=== PATIENT | male | born 1940 | race Two or more races ===

== ENCOUNTER 2017-08-17 12:33 | Day surgery (SDC) | payer OTHER ==
[2017-08-16 14:15] VITALS: BMI 32.5
[2017-08-17 13:09] VITALS: TEMP 97.3
[2017-08-17] MEDS ORDERED: BUPIVACAINE HCL/PF 0.5% (5MG/ML) 10 ML VIAL ONE (13:36)
[2017-08-17 18:36] VITALS: PULSE 78
[2017-08-17 19:20] VITALS: BP 125/61
== END 2017-08-17 19:20 | disposition home or self-care (01) ==
LOC: JRADIR 12:33
PROVIDERS: ATTEND Family Medicine
PROC: 3E0R3BZ Introduction of Anesthetic Agent into Spinal Canal, Percutaneous Approach (ICD-10-PCS; principal; 2017-08-17)
PROC: 3E0R33Z Introduction of Anti-inflammatory into Spinal Canal, Percutaneous Approach (ICD-10-PCS; 2017-08-17)
PROC: B01BZZZ Fluoroscopy of Spinal Cord (ICD-10-PCS; 2017-08-17)
DX: M48.061 Spinal stenosis, lumbar region without neurogenic claudication (principal); M46.86 Other specified inflammatory spondylopathies, lumbar region
CPT/HCPCS: 62322; 77003-TC

== ENCOUNTER 2017-12-26 11:44 | Emergency (ER) | payer OTHER ==
[2017-12-26 11:52] VITALS: BP 100/73; PULSE 88; TEMP 98; BMI 32.1
[2017-12-26] MEDS ORDERED: LIDOCAINE HCL 2% JELLY 10 ML CARTRIDGE ONE (12:20)
--- NOTE | 2017-12-26 12:23 | PDOC ---
Attending Attestation - Resident Resident Name: TylerajCelso - ED Attending Attestation I have performed the following: I have examined & evaluated the patient, The case was reviewed & discussed with the resident, I agree w/resident's findings & plan, Exceptions are as noted - HPI HPI: 12/26/17 13:16 The patient is a 77 year old male with no a significant PMH of hyperlipidemia, hypertension, diverticulosis, bilateral knee hip replacement, and cholecystectomy who presents to the emergency department with urinary retention since earlier today. The patient reports that he has been experiencing suprapubic pain with only a few drops of UOP. The patient reports that he has had a similar episode once before, one year ago corrected by sutton. The patient denies any other symptoms. He denies chest pain, shortness of breath, headache and dizziness. He denies fever, chills, nausea, vomit, diarrhea,constipation or other urinary symptoms. The patient denies any other complaints. Allergies: NKA Past surgical history:bilateral knee, hip replacement. Urologist: Dr. Chicas - Physicial Exam PE: 12/26/17 13:16 GENERAL: Awake, alert, and fully oriented, in no acute distress HEAD: No signs of trauma EYES: PERRLA, EOMI, sclera anicteric, conjunctiva clear ENT: Auricles normal inspection, hearing grossly normal, nares patent, oropharynx clear without exudates. Moist mucosa NECK: Normal ROM, supple, no lymphadenopathy, JVD, or masses LUNGS: Breath sounds equal, clear to auscultation bilaterally. No wheezes, and no crackles HEART: Regular rate and rhythm, normal S1 and S2, no murmurs, rubs or gallops ABDOMEN: Soft, nontender, normoactive bowel sounds. No guarding, no rebound. No masses. +lower abd distension EXTREMITIES: Normal range of motion, no edema. No clubbing or cyanosis. No cords, erythema, or tenderness NEUROLOGICAL: Normal speech, cranial nerves intact, negative pronator drift, 5/ 5 strength in all 4 extremities, normal sensation to light touch in all 4 extremities, normal cerebellar exam, normal gait, normal reflexes and tone SKIN: Warm, Dry, normal turgor, no rashes or lesions noted. - Medical Decision Making 12/26/17 13:17 77-year-old male multiple medical problems presents to the emergency Department with urinary retention. Sutton has been placed with clear urine output. Urine is still draining at this time. Thus far, labs are negative with normal creatinine. Urinalysis is negative for infection. Case discussed with his urologist Dr. Blackburn who will see him tomorrow in the office. Will observe the patient to ensure he does not have post obstructive diuresis and if not, we' ll discharge. 12/26/17 13:46 300cc UOP, leg bag placed. Pt to f/u with Dr. Maria tomorrow. Pt feels well. I discussed the physical exam findings, ancillary test results and final diagnoses with the patient. I answered all of the patient's questions. The patient was satisfied with the care received and felt comfortable with the discharge plan and treatment plan. The patient will call their primary care physician within 24 hours to arrange follow-up and will return to the Emergency Department with any new, persistent or worsening symptoms.
[2017-12-26 12:37] LABS: HEMATOCRIT 44.7 % (35.4-49); HEMOGLOBIN 15.2 GM/dL (11.7-16.9); MCH 30.7 pg (25.7-33.7); MCHC 33.9 g/dl (32.0-35.9); MEAN CELL VOLUME 90.5 fl (80-96); MEAN PLT VOLUME 7.6 fl (7.5-11.1); PLATELET COUNT 362 K/MM3 (134-434); RBC 4.94 M/mm3 (4.00-5.60); RDW 12.6 % (11.9-15.9); WHITE BLOOD COUNT 8.3 K/mm3 (4.0-10.0)
[2017-12-26 12:51] LABS: URINE APPEARANCE CLEAR; URINE BILIRUBIN NEGATIVE (<2.0 mg/dL); URINE COLOR LTYELLOW; URINE GLUCOSE (UA) NEGATIVE (NEGATIVE); URINE KETONE NEGATIVE (NEGATIVE); URINE LEUK ESTERASE NEGATIVE (NEGATIVE); URINE NITRITE NEGATIVE (NEGATIVE); URINE PROTEIN NEGATIVE (NEGATIVE); URINE UROBILINOGEN NEGATIVE mg/dL (0.2-1.0)
[2017-12-26 13:04] LABS: ALBUMIN 3.9 g/dl (3.4-5.0); ANION GAP 6 (8-16); BILIRUBIN,TOTAL 0.5 mg/dL (0.2-1.0); BLOOD UREA NITROGEN 10 mg/dL (7-18); CALCIUM 9.1 mg/dL (8.5-10.1); CHLORIDE 103 mmol/L (98-107); CO2 27 mmol/L (21-32); CREATININE 0.9 mg/dL (0.7-1.3); GLUCOSE,RANDOM 108 mg/dL (74-106); POTASSIUM 4.6 mmol/L (3.5-5.1); SGOT/AST 14 U/L (15-37); SGPT/ALT 22 U/L (12-78); SODIUM 136 mmol/L (136-145); TOT PROT 7.1 g/dl (6.4-8.2)
[2017-12-26 13:05] LABS: ALK PHOS 66 U/L (45-117)
--- NOTE | 2017-12-26 13:12 | PDOC ---
History of Present Illness - General Chief Complaint: Urinary Problem Stated Complaint: URINARY PAIN Time Seen by Provider: 12/26/17 12:05 History Source: Patient Exam Limitations: No Limitations - History of Present Illness Initial Comments: 12/26/17 13:10 Patient is a 77M with history of enlarged prostate, HTN, HLD, diverticulitis, cholecystitis, hip replacement here today complaining of urinary retention that started at 2am today. Denies fevers, chills, nausea, vomiting. Denies pain with urination, denies blood in urine. Patient denies abdominal and flank pain. Denies chest pain and shortness of breath. Patient states that he's had history of retention in the past. Urologist: Dr Chicas Past History - Past Medical History Allergies/Adverse Reactions: Allergies Allergy/AdvReac Type Severity Reaction Status Date / Time No Known Allergies Allergy Verified 12/26/17 11:50 Home Medications: Ambulatory Orders Amlodipine Besylate/Benazepril [Lotrel 10-40 mg Capsule] 1 each PO DAILY #0 capsule 09/04/13 Aspirin Coated [Ecotrin -] 81 mg PO DAILY #0 tablet.ec 09/04/13 Atorvastatin Ca [Lipitor] 10 mg PO DAILY #0 tablet 09/04/13 Docusate Sodium [Colace -] 100 mg PO BID #0 capsule 09/04/13 Furosemide [Lasix -] 20 mg PO DAILY #0 tablet 09/04/13 Potassium Chloride [Klor-Con 10] 10 meq PO DAILY #0 tablet.er 09/04/13 Tamsulosin HCl [Flomax -] 0.4 mg PO DAILY #0 cap.er.24h 09/04/13 Carvedilol 12.5 mg PO DAILY 08/16/17 Fenofibric Acid [Fibricor] 105 mg PO DAILY 08/16/17 [place]-3/Dha/Epa/Fish Oil [[place] 3 500 Softgel] 1 each PO DAILY 08/16/17 Cardiac Disorders: Yes (STOMACH) COPD: No CHF: Yes GI Disorders: Yes (DIVERTICULOSIS) Disorders: No HTN: Yes Hypercholesterolemia: Yes Liver Disease: No Thyroid Disease: No - Surgical History Cholecystectomy: Yes Orthopedic Surgery: Yes (HIP REPLACEMENT RIGHT ,NIKKI KNEE SURGERY) - Immunization History Immunization Up to Date: Yes - Suicide/Smoking/Psychosocial Hx Smoking Status: No Smoking History: Never smoked Have you smoked in the past 12 months: No Number of Cigarettes Smoked Daily: 0 Hx Alcohol Use: No Drug/Substance Use Hx: No Substance Use Type: None Hx Substance Use Treatment: No Review of Systems - Review of Systems Comments:: 12/26/17 13:14 GENERAL/CONSTITUTIONAL: No fever or chills. No weakness. HEAD, EYES, EARS, NOSE AND THROAT: No change in vision. No sore throat. CARDIOVASCULAR: No chest pain or shortness of breath RESPIRATORY: No cough, wheezing, or hemoptysis. GASTROINTESTINAL: No nausea, vomiting, diarrhea or constipation. GENITOURINARY: No dysuria, frequency. Positive for urinary retnetion. MUSCULOSKELETAL: No joint or muscle swelling or pain. No neck or back pain. SKIN: No rash NEUROLOGIC: No headache, vertigo, loss of consciousness, or change in strength/ sensation. HEMATOLOGIC/LYMPHATIC: No anemia, easy bleeding, or history of blood clots. ALLERGIC/IMMUNOLOGIC: No hives or skin allergy. *Physical Exam - Vital Signs Last Vital Signs Temp Pulse Resp BP Pulse Ox 98.0 F 88 20 100/73 96 12/26/17 11:50 12/26/17 11:50 12/26/17 11:50 12/26/17 11:50 12/26/17 11:50 - Physical Exam Comments: 12/26/17 13:15 GENERAL: Awake, alert, and fully oriented, in no acute distress HEAD: No signs of trauma, normocephalic, atraumatic EYES: PERRLA, EOMI, sclera anicteric, conjunctiva clear NECK: Normal ROM, supple, no lymphadenopathy, JVD, or masses LUNGS: No distress, speaks full sentences, clear to auscultation bilaterally HEART: Regular rate and rhythm, normal S1 and S2, no murmurs, rubs or gallops, peripheral pulses normal and equal bilaterally. ABDOMEN: Soft, nontender, normoactive bowel sounds. No guarding, no rebound. No masses EXTREMITIES: Normal inspection, Normal range of motion, no edema. No clubbing or cyanosis. NEUROLOGICAL: Cranial nerves II through XII grossly intact. Normal speech, normal gait, no focal sensorimotor deficits SKIN: Warm, Dry, normal turgor, no rashes or lesions noted. ED Treatment Course - LABORATORY CBC & Chemistry Diagram: 12/26/17 12:25 12/26/17 12:25 - ADDITIONAL ORDERS Additional order review: Laboratory Results 12/26/17 12:23 Urine Color Ltyellow Urine Appearance Clear Urine pH 7.0 Ur Specific Glidden 1.009 Urine Protein Negative Urine Glucose (UA) Negative Urine Ketones Negative Urine Blood Negative Urine Nitrite Negative Urine Bilirubin Negative Urine Urobilinogen Negative Ur Leukocyte Esterase Negative 12/26/17 12:25 RBC 4.94 MCV 90.5 MCHC 33.9 RDW 12.6 MPV 7.6 Medical Decision Making - Medical Decision Making 12/26/17 13:15 Patient is 77M with history of HTN, HLD, diverticulitis, cholecystitis, hip replacement here today with urinary retention. Vital signs stable and normal. Sutton placed, 350cc drained after [address] Blackburn contacted , will see patient Tuesday. UA negative. CBC normal. 12/26/17 13:31 CMP shows normal. Cr, will discharge patient with return precautions. *DC/Admit/Observation/Transfer Diagnosis at time of Disposition: Urinary retention - Discharge Dispostion Disposition: HOME Condition at time of disposition: Good Decision to Admit order: No - Referrals Referrals: Rosemarie Alatorre MD [Primary Care Provider] - Walker Chicas MD [Staff Physician] - - Patient Instructions Printed Discharge Instructions: DI for Urinary Retention in Men, How to Care for Your Sutton Catheter -- Male Additional Instructions: Please return if you have any new, worsening or concerning symptoms. Please call Dr Chicas tomorrow morning and see him tomorrow. Please take care of your sutton catheter as directed in the packet of information. - Post Discharge Activity
== END 2017-12-26 13:57 | disposition home or self-care (01) ==
LOC: JER 11:44
PROC: 0T9B70Z Drainage of Bladder with Drainage Device, Via Natural or Artificial Opening (ICD-10-PCS; principal; 2017-12-26)
DX: N40.1 Benign prostatic hyperplasia with lower urinary tract symptoms (principal); R33.8 Other retention of urine; I10 Essential (primary) hypertension; E78.5 Hyperlipidemia, unspecified; K57.90 Diverticulosis of intestine, part unspecified, without perforation or abscess without bleeding; Z96.643 Presence of artificial hip joint, bilateral; Z96.653 Presence of artificial knee joint, bilateral; Z90.49 Acquired absence of other specified parts of digestive tract
CPT/HCPCS: 36415; 51702; 80053; 81003; 85027; 87086; 99282-25

== ENCOUNTER 2019-07-10 14:37 | Emergency (ER) | payer OTHER ==
[2019-07-10 14:49] VITALS: TEMP 98.2; BMI 32.5
--- NOTE | 2019-07-10 14:50 | PDOC ---
Rapid Medical Evaluation Chief Complaint: Shortness of Breath Time Seen by Provider: 07/10/19 14:41 Medical Evaluation: Allergies Allergy/AdvReac Type Severity Reaction Status Date / Time No Known Allergies Allergy Verified 12/26/17 11:50 07/10/19 14:46 I have performed a brief in-person evaluation of this patient. The patient presents with a chief complaint of:h/o anxiety on multiple anxiety meds present with complains of 3 weeks h/o persistent SOB and anxiety. was seen by PCP Dr. Alatorre who added another anxiety medication to lorazapam and quetiazine but pt report symptoms worsening with meds. Pertinent physical exam findings: A&O x 3 in rapid breathing and anxious. heart RRR. lungs CTAB I have ordered the following: EKG The patient will proceed to the ED for further evaluation. Discharge Disposition - Diagnosis Anxiety disorder Qualifiers: Anxiety disorder type: generalized anxiety disorder Qualified Code(s): F41.1 - Generalized anxiety disorder - Discharge Dispostion Condition at time of disposition: Stable - Referrals - Patient Instructions - Post Discharge Activity
--- NOTE | 2019-07-10 16:35 | PDOC ---
History of Present Illness - General Chief Complaint: Shortness of Breath Stated Complaint: DIFFICULTY BREATHING Time Seen by Provider: 07/10/19 14:41 - History of Present Illness Initial Comments: Donal Corona is a 79yo man with a PMH of HTN, HLD, BPH, diverticulitis, cholecystitis, hip replacement, anxiety who presents to the ED reporting shortness of breath that has been occuring for several weeks. He says that it has been especially bad over the past few days. Mr Corona reports that he went to see his PMD on Tuesday, and he had blood tests and an xray completed, which he was told were normal. Usually the SOB lasts for about an hour. It seems to start randomly. He usually calls his son, and the SOB resolves during the conversation. Today, the symptoms have lasted longer, and he has felt short of braeth since this morning. He called his PMD's office, but Dr Alatorre is not available today. A nurse at the office recommended that he come to the hospital. Mr Corona denies any chest pain, lightheadedness, nausea, sweating, headache, weakness/numbness, recent travel, immobilization, recent surgery, or other recent symptoms. He additionally does not have any fever, nasal congestion, cough, or history of asthma. Past History - Past Medical History Allergies/Adverse Reactions: Allergies Allergy/AdvReac Type Severity Reaction Status Date / Time No Known Allergies Allergy Verified 07/10/19 14:48 Home Medications: Ambulatory Orders Amlodipine Besylate/Benazepril [Lotrel 10-40 mg Capsule] 1 each PO DAILY #0 capsule 09/04/13 Aspirin Coated [Ecotrin -] 81 mg PO DAILY #0 tablet.ec 09/04/13 Atorvastatin Ca [Lipitor] 10 mg PO DAILY #0 tablet 09/04/13 Docusate Sodium [Colace -] 100 mg PO BID #0 capsule 09/04/13 Furosemide [Lasix -] 20 mg PO DAILY #0 tablet 09/04/13 Potassium Chloride [Klor-Con 10] 10 meq PO DAILY #0 tablet.er 09/04/13 Tamsulosin HCl [Flomax -] 0.4 mg PO DAILY #0 cap.er.24h 09/04/13 Carvedilol 12.5 mg PO DAILY 08/16/17 Fenofibric Acid [Fibricor] 105 mg PO DAILY 08/16/17 [place]-3/Dha/Epa/Fish Oil [[place] 3 500 Softgel] 1 each PO DAILY 08/16/17 Cardiac Disorders: Yes (STOMACH) COPD: No CHF: Yes GI Disorders: Yes (DIVERTICULOSIS) Disorders: No HTN: Yes Hypercholesterolemia: Yes Liver Disease: No Thyroid Disease: No - Surgical History Cholecystectomy: Yes Orthopedic Surgery: Yes (HIP REPLACEMENT RIGHT ,NIKKI KNEE SURGERY) - Immunization History Immunization Up to Date: Yes - Psycho Social/Smoking Cessation Hx Smoking Status: No Smoking History: Never smoked Have you smoked in the past 12 months: No Number of Cigarettes Smoked Daily: 0 Information on smoking cessation initiated: No Hx Alcohol Use: No Drug/Substance Use Hx: No Substance Use Type: None Hx Substance Use Treatment: No Review of Systems - Review of Systems Comments:: General: No fevers, no chills, no weight or appetite change, no malaise HEENT: No changes in vision, no changes in hearing, no congestion, no sore throat CV: No chest pain, no palpitations, no LE edema Pulm: + SOB, no cough, no wheezing GI: No nausea or vomiting, no change in bowel habits, no melena : No frequency, no urgency, no dysuria Musc: No back pain, no joint swelling, no recent injury Skin: No rash, no lesions, no erythema Endo: No excessive thirst, no heat/cold intolerance Heme: No unusual bruising or bleeding, no swollen glands Neuro: No syncope, no numbness/tingling, no focal weakness Vasc: No claudication Psych: No recent change in mood, no SI or HI *Physical Exam - Vital Signs Last Vital Signs Temp Pulse Resp BP Pulse Ox 98.2 F 83 22 H 146/84 98 07/10/19 14:41 07/10/19 14:41 07/10/19 14:41 07/10/19 14:41 07/10/19 14:41 - Physical Exam General: Appears anxious, no acute distress HEENT: Atraumatic, PERRL, EOMI, MMM, voice normal, normal neck ROM Cards: RRR, no murmur appreciated Pulm: Tachypnic, clear to auscultation bilaterally Abd: Soft, nontender, nondistended Ext: Atraumatic. No LE edema. ROM intact. WWP Skin: Normal color, no rashes or lesions Neuro: A&Ox3, CN grossly intact, normal speech, motor/sensory grossly intact and symmetric Psych: Mood appropriate to situation ED Treatment Course - LABORATORY CBC & Chemistry Diagram: 07/10/19 16:44 07/10/19 16:44 Medical Decision Making - Medical Decision Making 07/10/19 16:35 Donal Corona is a 79yo man with a PMH of HTN, HLD, BPH, diverticulitis, cholecystitis, hip replacement, anxiety who presents to the ED reporting shortness of breath that has been occurring daily for several weeks, though his symptoms generally resolve in about an hour if he talks with family. Today they have been present all day. He recently saw his PMD on Tuesday for the same symptoms and had a negative workup. - Symptoms may be anxiety, cardiac. Cannot r/o PE as pt has record of a pancreatic mass noted in his chart. Less likely URI or pneumonia as pt does not report any fever, cough, or other related symptoms. - CBC, CMP, trop, EKG - CTA chest to evaluate for possible PE given persistent SOB 07/10/19 18:13 - Labs reviewed. No concerning abnormalities - CTA to be completed 07/10/19 19:53 - CTA without thrombus or other acute abnormalities appreciated - Reassessed pt. Now asymptomatic, would like to be discharged home - Will discuss close follow up with PMD, return precautions prior to discharge. Discussed with Dr Rebecca Reddy PGY2 Discharge - Discharge Information Problems reviewed: Yes Clinical Impression/Diagnosis: Shortness of breath Anxiety disorder Qualifiers: Anxiety disorder type: generalized anxiety disorder Qualified Code(s): F41.1 - Generalized anxiety disorder Condition: Stable Disposition: HOME - Admission No - Follow up/Referral Referrals: Rosemarie Alatorre MD [Primary Care Provider] - - Patient Discharge Instructions Patient Printed Discharge Instructions: DI for Panic Disorder Additional Instructions: Discharge Instructions: You were seen in the emergency department for shortness of breath. You had blood tests and a CT scan. These did not show any concerning findings. Your symptoms may be due to your anxiety. Home Care: - Take all of your regular medications as prescribed by your primary doctor. You may use your lorazepam as prescribed for symptoms of anxiety. - Make an appointment to see your regular doctor within the next 2-3 days - Seek immediate care if you have worsening symptoms, chest pain, or any other medical emergency. - Post Discharge Activity
[2019-07-10 17:02] LABS: BASO % 0.9 % (0-2.0); EOS % 1.7 % (0-4.5); HEMATOCRIT 45.3 % (35.4-49); HEMOGLOBIN 15.3 GM/dL (11.7-16.9); MCH 31.1 pg (25.7-33.7); MCHC 33.8 g/dl (32.0-35.9); MEAN CELL VOLUME 92.1 fl (80-96); MEAN PLT VOLUME 7.3 fl (7.5-11.1); MONO % 10.6 % (3.8-10.2); NEUT % 30.8 % (42.8-82.8); PLATELET COUNT 384 K/MM3 (134-434); RBC 4.92 M/mm3 (4.00-5.60); RDW 12.8 % (11.9-15.9); WHITE BLOOD COUNT 11.3 K/mm3 (4.0-10.0)
[2019-07-10 17:37] LABS: BILIRUBIN,TOTAL 0.4 mg/dL (0.2-1); CREATININE 0.8 mg/dL (0.55-1.3); POTASSIUM 4.5 mmol/L (3.5-5.1); TOT PROT 7.4 g/dl (6.4-8.2)
[2019-07-10 17:41] VITALS: BP 149/79; PULSE 60
[2019-07-10 17:45] LABS: PLATELET ESTIMATE INCREASED
--- NOTE | 2019-07-10 17:50 | PDOC ---
Documentation entered by Renita Hinton SCRIBE, acting as scribe for Jacek Fernandez MD. Jacek Fernandez MD: This documentation has been prepared by the Mary Jane howard Adrianna, SCRIBE, under my direction and personally reviewed by me in its entirety. I confirm that the documentation accurately reflects all work, treatment, procedures, and medical decision making performed by me. Attending Attestation - Resident Resident Name: MaureenEli - ED Attending Attestation I have performed the following: I have examined & evaluated the patient, The case was reviewed & discussed with the resident, I agree w/resident's findings & plan, Exceptions are as noted - HPI HPI: 07/10/19 17:48 79 M with h/o HTN, HLD, BPH, diverticulitis, hip replacement, anxiety, presenting to ED with SOB. Pt states that he has had it for several weeks. He was evaluated by his PMD, who prescribed him ativan for anxiety. However, he states that the medication does not help at all for his SOB. He endorses upper back pain as well. Denies any chest pain. Denies F/C. Denies any leg swelling. No recent travel/immobilization. - Physicial Exam PE: 07/10/19 17:49 "GENERAL: Awake, alert, and fully oriented, in no acute distress. HEAD: No signs of trauma EYES: PERRLA, EOMI, sclera anicteric, conjunctiva clear ENT: Auricles normal inspection, hearing grossly normal, nares patent, oropharynx clear without exudates. Moist mucosa NECK: Nontender, no stepoffs, Normal ROM, supple, no lymphadenopathy, JVD, or masses LUNGS: Tachypneic, Breath sounds equal, clear to auscultation bilaterally. No wheezes, and no crackles HEART: Regular rate and rhythm, normal S1 and S2, no murmurs, rubs or gallops ABDOMEN: Soft, nontender, normoactive bowel sounds. No guarding, no rebound. No masses EXTREMITIES: Normal range of motion, no edema. No clubbing or cyanosis. No cords, erythema, or tenderness NEUROLOGICAL: Cranial nerves II through XII intact. 5/5 strength and sensation in all extremities, Normal speech, normal gait, normal cerebellar function SKIN: Warm, Dry, normal turgor, no rashes or lesions noted. - Medical Decision Making 07/10/19 17:50 79 M with SOB and upper back pain. Will r/o ACS with EKG and trop, though less likely given lack of chest pain. Will r/o PE with CTA given tachypnea. However, likely anxiety related given pt's significant history of anxiety requiring daily benzos. - Labs, trop - CTA chest Labs wnl Pt signed out to oncoming attending Dr. Bruner at 7PM, pending CTA and re- evaluation.
[2019-07-10] MEDS ORDERED: diazePAM CARPU-JECT 10 MG/2 ML DISP.SYRIN IVPUSH ONE (18:56)
[2019-07-10] MEDS ORDERED: diazePAM 5 MG TABLET PO ONE (19:03)
[2019-07-10] MEDS ORDERED: diazePAM 5 MG TABLET ONE (19:54)
--- NOTE | 2019-07-11 10:26 | EKG ---
Test Reason : Blood Pressure : / mmHG Vent. Rate : 054 BPM Atrial Rate : 054 BPM P-R Int : 184 ms QRS Dur : 142 ms QT Int : 442 ms P-R-T Axes : 031 -23 002 degrees QTc Int : 419 ms SINUS BRADYCARDIA WITH PREMATURE ATRIAL COMPLEXES RIGHT BUNDLE BRANCH BLOCK ABNORMAL ECG WHEN COMPARED WITH ECG OF 10-JUL-2019 14:56, NO SIGNIFICANT CHANGE WAS FOUND Confirmed by VALDEMAR PALMER, SELVIN ([id number]) on 07/11/2019 10:25:56 AM Referred By: Confirmed By:SELVIN ALDRICH MD
--- NOTE | 2019-07-15 10:12 | EKG ---
Test Reason : Blood Pressure : / mmHG Vent. Rate : 060 BPM Atrial Rate : 060 BPM P-R Int : 190 ms QRS Dur : 136 ms QT Int : 416 ms P-R-T Axes : 049 015 006 degrees QTc Int : 416 ms SINUS RHYTHM WITH PREMATURE ATRIAL COMPLEXES RIGHT BUNDLE BRANCH BLOCK ABNORMAL ECG WHEN COMPARED WITH ECG OF 03-SEP-2013 16:34, PREMATURE ATRIAL COMPLEXES ARE NOW PRESENT Confirmed by MIGUEL PALMER, RYLAND ([id number]) on 07/15/2019 10:12:05 AM Referred By: Confirmed By:RYLAND RIVERA MD
== END 2019-07-10 19:55 | disposition home or self-care (01) ==
LOC: JER 14:37
DX: I10 Essential (primary) hypertension (principal); E78.5 Hyperlipidemia, unspecified; E78.00 Pure hypercholesterolemia, unspecified; K57.30 Diverticulosis of large intestine without perforation or abscess without bleeding; K57.32 Diverticulitis of large intestine without perforation or abscess without bleeding; Z96.641 Presence of right artificial hip joint
CPT/HCPCS: 36415; 71046-TC-FY; 71275-TC; 80053; 82550; 84443; 84484; 85025; 93005; 93010; 99282-25; Q9967

== ENCOUNTER 2024-03-19 03:56 | Day surgery (SDC) | payer OTHER ==
[2024-03-16 11:58] VITALS: BMI 30.2
[2024-03-19] MEDS ORDERED: LIDOCAINE HCL/PF 2% SDV 5ML VIAL ONE (07:09)
[2024-03-19] MEDS ORDERED: MIDAZOLAM HCL 2 MG/2 ML SINGLE DOSE VIAL ONE (07:10)
[2024-03-19] MEDS ORDERED: PROPOFOL 20 ML ONE (07:10)
[2024-03-19] MEDS: ceFAZolin SODIUM 1 GM VIAL IVPB ONE (08:08)
[2024-03-19] MEDS: GENTAMICIN 80MG PREMIX BAG IVPB ONE (08:08)
[2024-03-19] MEDS ORDERED: DEXAMETHASONE SOD PHOSPHATE 4 MG/1 ML VIAL ONE (08:12)
[2024-03-19] MEDS ORDERED: ceFAZolin SODIUM 1 GM VIAL ONE (08:16)
[2024-03-19] MEDS ORDERED: KETOROLAC TROMETHAMINE 30 MG/1 ML VIAL ONE (08:21)
[2024-03-19] MEDS ORDERED: ONDANSETRON 4 MG/2 ML VIAL ONE (08:21)
[2024-03-19] MEDS ORDERED: ONDANSETRON 4 MG/2 ML VIAL IVPUSH PRN (08:26)
[2024-03-19] MEDS ORDERED: oxyCODONE HCL 5 MG TABLET PO PRN ×2 (08:26)
[2024-03-19] MEDS ORDERED: PROMETHAZINE HCL 25 MG/1 ML VIAL IVPB PRN (08:26)
[2024-03-19] MEDS ORDERED: LACTATED RINGERS SOLUTION 1,000 ML IV SCH (08:30)
[2024-03-19] MEDS ORDERED: ACETAMINOPHEN INJECTION 100 ML IVPB ONE (09:27)
[2024-03-19] MEDS: ACETAMINOPHEN 1000 MG/100 ML BAG IVPB ONE (09:34)
[2024-03-19 10:48] VITALS: RESP 18; TEMP 97.8
[2024-03-19 11:40] VITALS: BP 158/71; PULSE 74
== END 2024-03-19 11:42 | disposition home or self-care (01) ==
LOC: JASU-SURG 03:56
PROVIDERS: ATTEND Urology
PROC: 0T7D8DZ Dilation of Urethra with Intraluminal Device, Via Natural or Artificial Opening Endoscopic (ICD-10-PCS; principal; 2024-03-19 08:00)
DX: N40.1 Benign prostatic hyperplasia with lower urinary tract symptoms (principal); R33.8 Other retention of urine
CPT/HCPCS: C9740; L8699; 94760; J0131